=== PATIENT | female | born 1930 | race Caucasian/White ===

== ENCOUNTER 2017-07-17 13:47 | Emergency (ER) | payer MEDICARE, OTHER ==
--- NOTE | 2017-07-17 14:19 | RADIOLOGY REPORT (SQ) ---
EXAM DESCRIPTION: CT HEAD WITHOUT COMPLETED DATE/TIME: 07/17/2017 2:07 pm REASON FOR STUDY: bed [address] fall [address] head per [address] monreal COMPARISON: 07/21/2012 TECHNIQUE: Axial images acquired through the brain without intravenous contrast. Images reviewed wi th bone, brain and subdural windows. Images stored on PACS. All CT scanners at this facility use dose modulation, iterative reconstruction, and/or weight based d osing when appropriate to reduce radiation dose to as low as reasonably achievable (ALARA). [facility]: Dose Right [facility]: CareDose [facility]: Dose Right [facility]: Teradose 4D [facility]: Smart [employer] [place] RADIATION DOSE: CT Rad equipment meets quality standard of care and radiation dose reduction techniq ues were employed. CTDIvol: 53.2 mGy. DLP: 1044 mGy-cm.mGy. LIMITATIONS: None. FINDINGS: VENTRICLES: Prominent. CEREBRUM: No masses. No hemorrhage. No midline shift. Areas of low density in the white matter mos t likely due to chronic micro-vascular ischemic change. No evidence for acute infarction. CEREBELLUM: No masses. No hemorrhage. No alteration of density. No evidence for acute infarction. EXTRAAXIAL SPACES: Age-related involutional change. No fluid collections. No masses. ORBITS AND GLOBE: No intra- or extraconal masses. Normal contour of globe without masses. CALVARIUM: No fracture. PARANASAL SINUSES: No fluid or mucosal thickening. SOFT TISSUES: Large posterior scalp hematoma. OTHER: No other significant finding. IMPRESSION: SCALP HEMATOMA WITHOUT FRACTURE OR ACUTE INTRACRANIAL PROCESS. EVIDENCE OF ACUTE STROKE: NO. TECHNICAL DOCUMENTATION: JOB ID: [id number] Quality ID # [id number]: Final reports with documentation of one or more dose reduction techniques (e.g., Au tomated exposure control, adjustment of the mA and/or kV according to patient size, use of iterative reconstruction technique) 2010 [employer]- All Rights Reserved Reading location - IP/workstation name: [email or web address]
--- NOTE | 2017-07-17 14:20 | RADIOLOGY REPORT (SQ) ---
EXAM DESCRIPTION: CT CERVICAL SPINE WITHOUT COMPLETED DATE/TIME: 07/17/2017 2:07 pm REASON FOR STUDY: bed [address] fall [address] head per [address] monreal COMPARISON: None. TECHNIQUE: Axial images acquired through the cervical spine without intravenous contrast. Images re viewed with lung, soft tissue and bone windows. Reconstructed coronal and sagittal MPR images review ed. Images stored on PACS. All CT scanners at this facility use dose modulation, iterative reconstruction, and/or weight based d osing when appropriate to reduce radiation dose to as low as reasonably achievable (ALARA). [facility]: Dose Right [facility]: CareDose [facility]: Dose Right [facility]: Teradose 4D [facility]: [employer] RADIATION DOSE: CT Rad equipment meets quality standard of care and radiation dose reduction techniq ues were employed. CTDIvol: 19.6 mGy. DLP: 384 mGy-cm. mGy. LIMITATIONS: None. FINDINGS: ALIGNMENT: Anatomic. MINERALIZATION: Normal. VERTEBRAL BODIES: No fractures or dislocation. DISCS: Multilevel disc space narrowing with osteophytes. FACETS, LATERAL MASSES, POSTERIOR ELEMENTS: Facet arthropathy. No fractures. No dislocation. No ac ty findings. HARDWARE: None in the spine. VISUALIZED RIBS: No fractures. LUNG APICES AND SOFT TISSUES: No significant or acute findings. OTHER: No other significant finding. IMPRESSION: CHRONIC DEGENERATIVE CHANGES. NO ACUTE FINDINGS. TECHNICAL DOCUMENTATION: JOB ID: [id number] Quality ID # [id number]: Final reports with documentation of one or more dose reduction techniques (e.g., Au tomated exposure control, adjustment of the mA and/or kV according to patient size, use of iterative reconstruction technique) 2010 [employer]- All Rights Reserved Reading location - IP/workstation name: [email or web address]
[2017-07-17] MEDS ORDERED: ACETAMINOPHEN 325 MG TABLET PO ONE (14:21)
--- NOTE | 2017-07-17 14:30 | ER Document Report ---
ED General - General Chief Complaint: Fall Stated Complaint: FALL/HEAD INJURY Time Seen by Provider: 07/17/17 14:05 Mode of Arrival: Ambulatory Information source: Patient, Relative Notes: 86-year-old female with a history of diabetes, coronary artery disease, spinal stenosis, arthritis presents after a fall at home. Patient states that she fell down 3 steps striking her head on the concrete. She denies loss of consciousness. She denies any preceding dizziness, palpitations, chest pain, shortness of breath. She is not on any blood thinning medications. She does remember the event. Daughter is at the bedside and witnessed the patient's fall. Patient ambulates with a walker and cane which she was using. She is unsure if she misstepped. Daughter reports intermittent falls. Patient currently complaining of headache. She denies any visual changes, weakness, nausea. TRAVEL OUTSIDE OF THE [place] IN LAST 30 DAYS: No - HPI Onset: Just prior to arrival Onset/Duration: Sudden Quality of pain: Throbbing Severity: Mild Associated symptoms: Headache. denies: Chest pain, Leg swelling, Nausea, Vomiting, Shortness of breath Exacerbated by: Denies Relieved by: Denies Similar symptoms previously: Yes Recently seen / treated by doctor: No - Related Data Allergies/Adverse Reactions: codeine [Codeine] Allergy (Mild, Verified 09/30/12 00:36) VOMITING iodine [Iodine] Allergy (Mild, Verified 09/30/12 00:37) indomethacin [From Indocin] Allergy (Verified 09/30/12 00:36) Nausea indomethacin sodium [From Indocin] Allergy (Verified 09/30/12 00:36) Nausea naproxen [From Naprosyn] Allergy (Verified 09/30/12 00:36) Nausea oxycodone HCl [From Tylox] Allergy (Verified 09/30/12 00:36) VOMITING propoxyphene napsylate [From Darvocet-N 100] Allergy (Verified 09/30/12 00:36) VOMITING Home Medications: januvia, tirosint, dicyclomine, calcium, vitamin, metformin, claritin, losartan, omeprazole, mirtazapine, escitalopram Past Medical History - General Information source: Patient - Social History Smoking Status: Never Smoker Frequency of alcohol use: None Lives with: Family Family History: Arthritis, CAD, CVA, DM, Hyperlipidemia, Hypertension, Malignancy, Thyroid Disfunction, Other - Past Medical History Cardiac Medical History: Reports: Hx Coronary Artery Disease, Hx Hypercholesterolemia, Hx Hypertension Denies: Hx Heart Attack Pulmonary Medical History: Reports: Hx Asthma, Hx Bronchitis Denies: Hx COPD, Hx Pneumonia Neurological Medical History: Denies: Hx Cerebrovascular Accident, Hx Seizures Endocrine Medical History: Reports: Hx Diabetes Mellitus Type 2 GI Medical History: Reports: Hx Gastroesophageal Reflux Disease Musculoskeltal Medical History: Reports Hx Arthritis, Reports Hx Musculoskeletal Deformity Past Surgical History: Reports: Hx Adenoidectomy, Hx Cholecystectomy, Hx Genitourinary Surgery - bladder, Hx Gynecologic Surgery, Hx Hysterectomy, Hx Tonsillectomy, Hx Urinary Tract Surgery - Immunizations Immunizations up to date: Yes Hx Diphtheria, Pertussis, Tetanus Vaccination: Yes Hx Pneumococcal Vaccination: 12/12/09 Review of Systems - Review of Systems Notes: Patient denies fever, chills, nausea, vomiting, visual changes, weakness ear pain, sore throat, cough, chest pain, shortness of breath, abdominal pain, back pain, dysuria, hematuria, rash, recent illness. Physical Exam - Vital signs Interpretation: Normal - Notes Notes: PHYSICAL EXAMINATION: GENERAL: Well-appearing, well-nourished and in no acute distress. HEAD: Atraumatic, scalp hematoma and occipital region. EYES: Pupils equal round and reactive to light, extraocular movements intact, conjunctiva are normal. ENT: Nares patent, oropharynx clear without exudates. Moist mucous membranes. No hemotympanum, no malocclusion, no blood in the nares NECK: Normal range of motion, supple without lymphadenopathy. No midline tenderness or deformity LUNGS: Breath sounds clear to auscultation bilaterally and equal. No wheezes rales or rhonchi. HEART: Regular rate and rhythm without murmurs ABDOMEN: Soft, nontender, nondistended abdomen. No guarding, no rebound. No masses appreciated. Female : deferred Musculoskeletal: Normal range of motion, no pitting or edema. No cyanosis. She moves all 4 extremities without difficulty. Pelvis stable NEUROLOGICAL: Cranial nerves grossly intact. Normal speech, normal gait. Normal sensory, motor exams PSYCH: Normal mood, normal affect. SKIN: Warm, Dry, normal turgor, no rashes or lesions noted. Course - Re-evaluation Re-evalutation: Cervical Spine CT 07/17/17 00:00 IMPRESSION: CHRONIC DEGENERATIVE CHANGES. NO ACUTE FINDINGS. Head CT 07/17/17 00:00 IMPRESSION: SCALP HEMATOMA WITHOUT FRACTURE OR ACUTE INTRACRANIAL PROCESS. EVIDENCE OF ACUTE STROKE: NO. 07/17/17 14:28 86-year-old female presents after a fall at home. She denies any preceding dizziness, chest pain, nausea or weakness. She states she fell down 3 steps and struck her head on the concrete. She denies any loss of consciousness. Daughter is at the bedside and is to fall. Patient current complaint of headache. Exam significant for a hematoma of the scalp. CT of the head and cervical spine were obtained and showed no acute process. Patient was given Tylenol for pain. Patient provided the opportunity to ask questions, and express concerns. Discharge instructions discussed. Patient is agreeable with discharge home. Return indications explained and discussed with the patient who displays understanding. Patient encouraged to return to the emergency department immediately with any concerns. 07/17/17 14:58 Patient reevaluated. Still states that she feels okay. Is sitting up at the side of the bed without any issues. Again I explained that if she were to have worsening headache, change in mental status, more than 1 episode of vomiting she should return promptly to the emergency department. - Diagnostic Test Radiology reviewed: Image reviewed, Reports reviewed Discharge - Discharge Clinical Impression: Fall (on) (from) other stairs and steps, initial encounter Closed head injury Qualifiers: Encounter type: initial encounter Qualified Code(s): S09.90XA - Unspecified injury of head, initial encounter Hematoma of scalp Qualifiers: Encounter type: initial encounter Qualified Code(s): S00.03XA - Contusion of scalp, initial encounter Condition: Good Disposition: HOME, SELF-CARE Instructions: Head Injury Precautions ([facility]), Hematoma ([facility]) Additional Instructions: Follow up with your physician tomorrow for further care or return to the ED IMMEDIATELY if symptoms worsen or new concerns occur. If you cannot afford to follow up with your primary care physician a list of low cost clinics have been provided at the end of your discharge papers as well. Referrals: NIKKIE IBARRA PA-C [NO LOCAL MD] - Follow up as needed
[2017-07-17 15:16] VITALS: BP 139/52
== END 2017-07-17 15:03 | disposition home or self-care (01) ==
LOC: ER 13:47
DX: S09.90XA Unspecified injury of head, initial encounter (principal); W10.9XXA Fall (on) (from) unspecified stairs and steps, initial encounter; Y92.009 Unspecified place in unspecified non-institutional (private) residence as the place of occurrence of the external cause; I25.10 Atherosclerotic heart disease of native coronary artery without angina pectoris; I10 Essential (primary) hypertension; E11.9 Type 2 diabetes mellitus without complications; E78.00 Pure hypercholesterolemia, unspecified; Z88.6 Allergy status to analgesic agent; Z90.49 Acquired absence of other specified parts of digestive tract; Z90.710 Acquired absence of both cervix and uterus
CPT/HCPCS: 99283; 70450; 72125; A9270

== ENCOUNTER 2017-07-21 16:06 | Emergency (ER) | payer MEDICARE, OTHER ==
--- NOTE | 2017-07-21 16:29 | ER Document Report ---
ED Medical Screen (RME) - General Chief Complaint: Urinary Problem Stated Complaint: DIFFICULTY URINATING Time Seen by Provider: 07/21/17 16:19 Notes: 86-year-old female presents with inability urinate for the past 2 days. She only had a small amount of urine prior to arrival. She has the urge to urinate. PE: Suprapubic fullness. I have greeted and performed a rapid initial assessment of this patient. A comprehensive ED assessment and evaluation of the patient, analysis of test results and completion of the medical decision making process will be conducted by additional ED providers. TRAVEL OUTSIDE OF THE [place] IN LAST 30 DAYS: No - Related Data Allergies/Adverse Reactions: codeine [Codeine] Allergy (Mild, Verified 09/30/12 00:36) VOMITING iodine [Iodine] Allergy (Mild, Verified 09/30/12 00:37) indomethacin [From Indocin] Allergy (Verified 09/30/12 00:36) Nausea indomethacin sodium [From Indocin] Allergy (Verified 09/30/12 00:36) Nausea naproxen [From Naprosyn] Allergy (Verified 09/30/12 00:36) Nausea oxycodone HCl [From Tylox] Allergy (Verified 09/30/12 00:36) VOMITING propoxyphene napsylate [From Darvocet-N 100] Allergy (Verified 09/30/12 00:36) VOMITING Past Medical History - Past Medical History Cardiac Medical History: Reports: Hx Coronary Artery Disease, Hx Hypercholesterolemia, Hx Hypertension Denies: Hx Heart Attack Pulmonary Medical History: Reports: Hx Asthma, Hx Bronchitis Denies: Hx COPD, Hx Pneumonia Neurological Medical History: Denies: Hx Cerebrovascular Accident, Hx Seizures Endocrine Medical History: Reports: Hx Diabetes Mellitus Type 2 Renal/ Medical History: Denies: Hx Peritoneal Dialysis GI Medical History: Reports: Hx Gastroesophageal Reflux Disease Musculoskeltal Medical History: Reports Hx Arthritis, Reports Hx Musculoskeletal Deformity Past Surgical History: Reports: Hx Adenoidectomy, Hx Cholecystectomy, Hx Genitourinary Surgery - bladder, Hx Gynecologic Surgery, Hx Hysterectomy, Hx Tonsillectomy, Hx Urinary Tract Surgery - Immunizations Immunizations up to date: Yes Hx Diphtheria, Pertussis, Tetanus Vaccination: Yes Physical Exam - Vital signs Vitals: Temp Pulse Resp BP Pulse Ox 98.9 F 95 22 H 144/64 H 97 07/21/17 16:15 07/21/17 16:15 07/21/17 16:15 07/21/17 16:15 07/21/17 16:15 Course - Vital Signs Vital signs: Temp Pulse Resp BP Pulse Ox 98.9 F 95 22 H 144/64 H 97 07/21/17 16:15 07/21/17 16:15 07/21/17 16:15 07/21/17 16:15 07/21/17 16:15
--- NOTE | 2017-07-21 16:36 | ER Document Report ---
ED General - General Chief Complaint: Urinary Problem Stated Complaint: DIFFICULTY URINATING Time Seen by Provider: 07/21/17 16:19 Notes: 86-year-old female patient to the emergency department chief complaint of urinary retention. Patient states that she had a fall on Tuesday. Hit her head. Bruising noted around her eyes but patient states that she only hit the back of her head. Over the last 12-24 hours states that she has had urinary retention. Cannot urinate. No loss of bowel function. No numbness but does complain of some pain in her sacral region. Thinks that she might of landed on her buttocks as well. States that she has broken her sacrum in the past. 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 TRAVEL OUTSIDE OF THE [place] IN LAST 30 DAYS: No - Related Data Allergies/Adverse Reactions: codeine [Codeine] Allergy (Mild, Verified 09/30/12 00:36) VOMITING iodine [Iodine] Allergy (Mild, Verified 09/30/12 00:37) indomethacin [From Indocin] Allergy (Verified 09/30/12 00:36) Nausea indomethacin sodium [From Indocin] Allergy (Verified 09/30/12 00:36) Nausea naproxen [From Naprosyn] Allergy (Verified 09/30/12 00:36) Nausea oxycodone HCl [From Tylox] Allergy (Verified 09/30/12 00:36) VOMITING propoxyphene napsylate [From Darvocet-N 100] Allergy (Verified 09/30/12 00:36) VOMITING Past Medical History - General Information source: Patient - Social History Smoking Status: Never Smoker Cigarette use (# per day): No Frequency of alcohol use: None Drug Abuse: None Lives with: Family Family History: Arthritis, CAD, CVA, DM, Hyperlipidemia, Hypertension, Malignancy, Thyroid Disfunction, Other - Past Medical History Cardiac Medical History: Reports: Hx Coronary Artery Disease, Hx Hypercholesterolemia, Hx Hypertension Denies: Hx Heart Attack Pulmonary Medical History: Reports: Hx Asthma, Hx Bronchitis Denies: Hx COPD, Hx Pneumonia Neurological Medical History: Denies: Hx Cerebrovascular Accident, Hx Seizures Endocrine Medical History: Reports: Hx Diabetes Mellitus Type 2 Renal/ Medical History: Denies: Hx Peritoneal Dialysis GI Medical History: Reports: Hx Gastroesophageal Reflux Disease Musculoskeltal Medical History: Reports Hx Arthritis, Reports Hx Musculoskeletal Deformity Past Surgical History: Reports: Hx Adenoidectomy, Hx Cholecystectomy, Hx Genitourinary Surgery - bladder, Hx Gynecologic Surgery, Hx Hysterectomy, Hx Tonsillectomy, Hx Urinary Tract Surgery - Immunizations Immunizations up to date: Yes Hx Diphtheria, Pertussis, Tetanus Vaccination: Yes Hx Pneumococcal Vaccination: 12/12/09 Review of Systems - Review of Systems Constitutional: No symptoms reported EENT: No symptoms reported Cardiovascular: No symptoms reported Respiratory: No symptoms reported Gastrointestinal: No symptoms reported Genitourinary: Retention. denies: Burning, Dysuria, Discharge, Urgency Female Genitourinary: No symptoms reported Musculoskeletal: Back pain. denies: Deformity, Leg swelling, Ankle swelling Skin: See HPI, Other - Bruising to the face Hematologic/Lymphatic: No symptoms reported Neurological/Psychological: No symptoms reported Physical Exam - Vital signs Vitals: Temp Pulse Resp BP Pulse Ox 98.9 F 95 22 H 144/64 H 97 07/21/17 16:15 07/21/17 16:15 07/21/17 16:15 07/21/17 16:15 07/21/17 16:15 Interpretation: Normal - General General appearance: Appears well, Alert - HEENT Head: Normocephalic, Atraumatic Eyes: Periorbital ecchymosis. No: Periorbital edema Pupils: PERRL Fundascopic: Normal Tympanic membrane: Normal Neck: Normal - Respiratory Respiratory status: No respiratory distress Chest status: Nontender Breath sounds: Normal Chest palpation: Normal - Cardiovascular Rhythm: Regular Heart sounds: Normal auscultation Murmur: No - Abdominal Inspection: Normal Distension: No distension Bowel sounds: Normal Tenderness: Nontender Organomegaly: No organomegaly - Back Back: Normal, Tender, Other - Tenderness noted in the sacral region. There is no perianal numbness. There is a large bruise the perianal area/sacral region.. No: Deformity/step-off - Extremities General upper extremity: Normal inspection, Nontender, Normal color, Normal ROM , Normal temperature General lower extremity: Normal inspection, Nontender, Normal color, Normal ROM , Normal temperature, Normal weight bearing. No: Deb's sign - Neurological Neuro grossly intact: Yes Cognition: Normal Orientation: AAOx4 Daniela Coma Scale Eye Opening: Spontaneous Daniela Coma Scale Verbal: Oriented Slayden Coma Scale Motor: Obeys Commands Slayden Coma Scale Total: 15 Speech: Normal Motor strength normal: LUE, RUE, LLE, RLE Sensory: Normal - Psychological Associated symptoms: Normal affect, Normal mood - Skin Skin Temperature: Warm Skin Moisture: Dry Skin Color: Normal, Other - bruising noted on the sacrum and periorbital bilaterally Course - Re-evaluation Re-evalutation: 07/21/17 17:29 Patient with bruising noted in the perianal area status post fall on Tuesday now with urinary retention. Concern for cauda equina. CT lumbar spine ordered. CT lumbar spine shows significant central canal stenosis at L5-S1. Stat MRI ordered to rule out cauda equina. Of note, patient maintains rectal tone, perianal sensation is intact and sensation intact bilateral lower extremities so the likelihood of cauda equina is fairly low however based on the abnormal CT scan and her symptoms will proceed with stat MRI of the L-spine. Consulted radiologist regards ordering the MRI and MR is considered a reasonable course of action at this time according to radiologist as definitively cannot rule out cauda equina syndrome based on the CT scan. 07/21/17 17:39 Perez catheter is been placed. 950 cc of urine obtained. MRI ordered. Waiting results. Case discussed with colleague, Dr. Marin who will follow up on the MRI results. Patient advised to have catheter removed in 3 days. - Vital Signs Vital signs: Temp Pulse Resp BP Pulse Ox 98.9 F 95 22 H 144/64 H 97 07/21/17 16:15 07/21/17 16:15 07/21/17 16:15 07/21/17 16:15 07/21/17 16:15 - Laboratory Laboratory results interpreted by me: 07/21/17 17:00 Urine Ascorbic Acid 40 H Discharge - Discharge Clinical Impression: Acute urinary retention Condition: Good Disposition: HOME, SELF-CARE Instructions: Perez Catheter Care ([facility]), Urinary Retention ([facility]) Additional Instructions: Return to the emergency department or follow up with regular doctor in 3 days for Perez catheter removal.
--- NOTE | 2017-07-21 17:23 | RADIOLOGY REPORT (SQ) ---
EXAM DESCRIPTION: CT HEAD WITHOUT COMPLETED DATE/TIME: 07/21/2017 5:01 pm REASON FOR STUDY: fall on tuesday now with racoon eyes and urinary re COMPARISON: 07/17/2017 TECHNIQUE: Axial images acquired through the brain without intravenous contrast. Images reviewed wi th bone, brain and subdural windows. Additional sagittal and coronal reconstructions were generated. Images stored on PACS. All CT scanners at this facility use dose modulation, iterative reconstruction, and/or weight based d osing when appropriate to reduce radiation dose to as low as reasonably achievable (ALARA). [facility]: Dose Right [facility]: CareDose [facility]: Dose Right [facility]: Teradose 4D [facility]: [employer] RADIATION DOSE: CT Rad equipment meets quality standard of care and radiation dose reduction techniq ues were employed. CTDIvol: 53.2 mGy. DLP: 1017 mGy-cm.mGy. LIMITATIONS: None. FINDINGS: VENTRICLES: Prominent. CEREBRUM: No masses. No hemorrhage. No midline shift. Areas of low density in the white matter mos t likely due to chronic micro-vascular ischemic change. No evidence for acute infarction. CEREBELLUM: No masses. No hemorrhage. No alteration of density. No evidence for acute infarction. EXTRAAXIAL SPACES: Age-related involutional change. No fluid collections. No masses. ORBITS AND GLOBE: No intra- or extraconal masses. Normal contour of globe without masses. CALVARIUM: No fracture. PARANASAL SINUSES: No fluid or mucosal thickening. SOFT TISSUES: The previously described scalp hematoma is smaller in size. OTHER: No other significant finding. IMPRESSION: CHRONIC CHANGES OF ATROPHY AND MICROVASCULAR ISCHEMIA. NO ACUTE intracranial PROCESS. Interval decrease in size of the previously described scalp hematoma EVIDENCE OF ACUTE STROKE: NO. TECHNICAL DOCUMENTATION: JOB ID: [id number] Quality ID # [id number]: Final reports with documentation of one or more dose reduction techniques (e.g., Au tomated exposure control, adjustment of the mA and/or kV according to patient size, use of iterative reconstruction technique) 2010 [employer]- All Rights Reserved Reading location - IP/workstation name: [email or web address]
--- NOTE | 2017-07-21 17:24 | RADIOLOGY REPORT (SQ) ---
EXAM DESCRIPTION: CT LUMBAR SPINE WITHOUT COMPLETED DATE/TIME: 07/21/2017 5:01 pm REASON FOR STUDY: fall, pain and urinary retention COMPARISON: None. TECHNIQUE: Axial images acquired through the lumbar spine without intravenous contrast. Images revi ewed with lung, soft tissue and bone windows. Reconstructed coronal and sagittal MPR images reviewed . All images stored on PACS. All CT scanners at this facility use dose modulation, iterative reconstruction, and/or weight based d osing when appropriate to reduce radiation dose to as low as reasonably achievable (ALARA). [facility]: Dose Right [facility]: CareDose [facility]: Dose Right [facility]: Teradose 4D [facility]: [employer] RADIATION DOSE: mGy. LIMITATIONS: None. FINDINGS: SEGMENTATION: Normal. No transitional anatomy. ALIGNMENT: Dextroscoliosis at L1-2. VERTEBRAL BODIES: No fractures. No dislocation. No acute findings. DISCS: Disc spaces are narrowed at L1-2 and L2-3. Marginal osteophytes are present. L1-2: There is mild circumferential disc bulging with no central canal or foraminal stenosis. L2-3: No significant foraminal or central stenosis. L3-4: Mild circumferential disc bulging with no significant central canal or foraminal stenosis. L4-5: Circumferential disc bulging, facet and ligamentum flavum hypertrophy resulting in moderate ce ntral canal stenosis. L5-S1: Circumferential disc bulging, facet and ligamentum flavum hypertrophy resulting in considerab le central canal stenosis. PEDICLES, TRANSVERSE PROCESSES: No fracture or other acute abnormality. FACETS, POSTERIOR ELEMENTS: Hypertrophic facet changes most prominent at L4-5 and L5-S1. HARDWARE: None in the spine. VISUALIZED RIBS: No fractures. SOFT TISSUES: No significant or acute finding in adjacent soft tissues. OTHER: No other significant finding. IMPRESSION: 1. Scoliosis. 2. Central canal stenoses at L4-5 and L5-S1 as described. 3. Multilevel facet arthropathy. TECHNICAL DOCUMENTATION: JOB ID: [id number] Quality ID # [id number]: Final reports with documentation of one or more dose reduction techniques (e.g., Au tomated exposure control, adjustment of the mA and/or kV according to patient size, use of iterative reconstruction technique) 2010 [employer]- All Rights Reserved Reading location - IP/workstation name: [email or web address]
[2017-07-21 17:27] LABS: APPEARANCE,URINE CLEAR; BILIRUBIN,URINE NEGATIVE (NEGATIVE); COLOR,URINE YELLOW; GLUCOSE, URINE NEGATIVE (NEGATIVE); KETONES,URINE NEGATIVE (NEGATIVE); LEUKOCYTE ESTERASE,URINE NEGATIVE (NEGATIVE); NITRITE,URINE NEGATIVE (NEGATIVE); PROTEIN,URINE NEGATIVE (NEGATIVE); URINE SPECIFIC GRAVITY 1.011; UROBILINOGEN,URINE NEGATIVE mg/dL (<2.0)
--- NOTE | 2017-07-21 19:33 | RADIOLOGY REPORT (SQ) ---
EXAM DESCRIPTION: MRI LUMBAR SPINE WITHOUT COMPLETED DATE/TIME: 07/21/2017 7:11 pm REASON FOR STUDY: urinary retention, abnormal CT,? cauda equina COMPARISON: CT 07/21/2017 TECHNIQUE: Sagittal and Axial imaging includes T1, T2, STIR and gradient echo sequences. Coronal T2/ HASTE imaging. LIMITATIONS: None. FINDINGS: VISUALIZED UPPER ABDOMEN: Limited evaluation. No acute or suspicious findings suggested. SEGMENTATION: Normal. ALIGNMENT: Dextroscoliosis. VERTEBRAE: Intact. BONE MARROW: Mild Modic type endplate changes are present at L1-2. DISC SIGNAL: There is decreased signal intensity of all the lumbar discs. POSTERIOR ELEMENTS: Generally intact. No pars defect evident. HARDWARE: None in the spine. CORD AND CONUS: Normal in size and signal intensity. Conus at the L1 level. SOFT TISSUES: No aortic aneurysm seen. No bulky retroperitoneal adenopathy or mass. No paraspinal mas s or fluid. L1-L2: Left posterolateral disc bulge that encroaches upon the left neural foramen and displaces the traversing nerve roots. L2-L3: Left posterolateral/ foraminal disc bulge that does not appear to the entrapped the exiting ne rve root but that displaces the traversing nerve root on the left. L3-L4: Mild concentric disc bulging with mild hypertrophic facet changes. No significant central can al or foraminal stenosis. L4-L5: Mild concentric disc bulging. Hypertrophic facet changes and mild ligamentum flavum hypertrop hy. Mild central canal stenosis. No significant foraminal stenosis. L5-S1: Broad-based posterior disc bulge. Hypertrophic facet changes. This results in significant ce ntral canal stenosis. No significant foraminal stenosis. LOWER THORACIC: Incompletely imaged. No stenosis seen. SACRUM: Visualized upper sacrum intact. OTHER: No other significant findings. IMPRESSION: Scoliosis. Multilevel disc changes as described. Most significant finding is at L5-S1 where there is central canal stenosis secondary to broad-based posterior disc bulge and hypertrophic facet changes and ligamentum flavum hypertrophy. TECHNICAL DOCUMENTATION: JOB ID: [id number] [employer]- All Rights Reserved Reading location - IP/workstation name: [email or web address]
[2017-07-21] MEDS ORDERED: ACETAMINOPHEN 325 MG TABLET PO ONE (20:34)
[2017-07-21 20:46] VITALS: BP 120/62
== END 2017-07-21 20:47 | disposition home or self-care (01) ==
LOC: ER 16:06
DX: R33.9 Retention of urine, unspecified (principal); S30.0XXA Contusion of lower back and pelvis, initial encounter; S00.12XA Contusion of left eyelid and periocular area, initial encounter; S00.11XA Contusion of right eyelid and periocular area, initial encounter; S09.90XA Unspecified injury of head, initial encounter; W19.XXXA Unspecified fall, initial encounter; I25.10 Atherosclerotic heart disease of native coronary artery without angina pectoris; E78.00 Pure hypercholesterolemia, unspecified; I10 Essential (primary) hypertension; E11.9 Type 2 diabetes mellitus without complications; Z88.6 Allergy status to analgesic agent; Z90.49 Acquired absence of other specified parts of digestive tract; Z90.710 Acquired absence of both cervix and uterus
CPT/HCPCS: 99284; 51702; 81001; 72148; 70450; 72131; A9270